=== PATIENT | female | born 1980 ===

== ENCOUNTER 2018-11-07 14:04 | Outpatient (REF) | payer OTHER, SELFPAY ==
[2018-11-07 21:18] LABS: HCT 36.9 % (36.0-46.0); HGB 11.2 g/dL (12.0-15.5); Mean Corp. HGB Concentration 30.4 g/dL (32.0-36.0); Mean Corpuscular Hemoglobin 23.6 pg (27.0-33.0); Mean Corpuscular Volume 77.8 fL (80-95); Mean Platelet Volume 12.6 fL (8.0-11.0); Platelet Count 264 x1000/uL (130-400); RBC 4.74 m/cumm (4.00-5.20); RBC Distribution Width 16.3 % (11.7-14.6); White Blood Cell Count 5.63 k/cumm (4.4-10.8)
[2018-11-07 21:50] LABS: TSH 2.29 uIU/mL (0.358-3.74)
[2018-11-08 11:18] LABS: Iron 19 ug/dL (50-175); Total Iron Binding Capacity 340 ug/dL (250-450); Transferrin Sat 6 % (15-50)
== END 2018-11-07 14:24 ==
LOC: NCHCN 14:04
PROVIDERS: PCP Family Medicine; Visit Provider Nurse Practitioner Family
DX: E03.9 Hypothyroidism, unspecified (principal); Z86.2 Personal history of diseases of the blood and blood-forming organs and certain disorders involving the immune mechanism
CPT/HCPCS: 85027; 83540; 83550; 84443